=== PATIENT | female | born 1975 | race Caucasian/White ===

== ENCOUNTER 2016-12-22 18:16 | Emergency (ER) | payer BC ==
[2016-12-22 18:31] VITALS: BP 138/91
--- NOTE | 2016-12-22 19:13 | UC ---
Complaint Female HPI - HPI Summary HPI Summary: Pt presents with complaint of vaginal itching and burning. Pt states has a h/o yeast infection and states feels similar. Pt states used OTC monostat x 3 days and topical lotion with little improvement. Pt states feels like "on fire" and small bumps spreading towards buttock. No dysuria, hematuria. No odor. No bleeidng. Pt had ablation for metromenorrhagia in october 2016. Pt without concern for STDs. Pt states also with cold sore on left lip - pt has had before. Pt states increased stress, chronic abd pain - pt scheduled to have colonoscopy this week. Pt states has been on methotrexate x 4 weeks for ?RA by her rhuematologist. Pt states since taking it her bodya is " not right." No DM medications reviewed at this visit - History Of Current Complaint Chief Complaint: UCGU Stated Complaint: PERSONAL Time Seen by Provider: 12/22/16 18:45 Hx Obtained From: Patient Hx Last Menstrual Period: ABLATION ?: No Onset/Duration: Gradual Onset, Lasting Days Timing: Constant Severity Initially: Moderate Severity Currently: Moderate Character: Burning Associated Signs And Symptoms: Positive: Vaginal Discharge, Genital Swelling - Allergies/Home Medications Allergies/Adverse Reactions: Allergies Allergy/AdvReac Type Severity Reaction Status Date / Time Penicillins Allergy Rash Verified 12/22/16 18:31 Sulfamethoxazole Allergy Rash Verified 12/22/16 18:31 w/Trimethoprim [From Bactrim] Home Medications: Home Medications Miconazole Nitrate Vaginal [Monistat 3 Combination Pa 200-2 mg-% (9Gm)] 1 kit VA DAILY 12/22/16 [History Confirmed 12/22/16] PMH/Surg Hx/FS Hx/Imm Hx Previously Healthy: Yes Endocrine History: Diabetes - Surgical History Surgical History: Yes Surgery Procedure, Year, and Place: c sections x5, appy. ABLATION--11/02/16. CHOLECYSTECTOMY - Family History Known Family History: Positive: None - Social History Lives: With Family Alcohol Use: Occasionally Substance Use Type: None Smoking Status (MU): Never Smoked Tobacco - Immunization History Most Recent Influenza Vaccination: has not had Review of Systems Constitutional: Negative Skin: Rash - vaginal rash, itching left lip blister Eyes: Negative ENT: Negative Respiratory: Negative Cardiovascular: Negative Gastrointestinal: Negative Genitourinary: Negative Motor: Negative Neurovascular: Negative Musculoskeletal: Negative Neurological: Negative Psychological: Negative All Other Systems Reviewed And Are Negative: Yes Physical Exam Triage Information Reviewed: Yes Appearance: Well-Appearing, No Pain Distress, Well-Nourished Vital Signs: Initial Vital Signs Temp 98.3 F 12/22/16 18:24 Pulse 102 12/22/16 18:24 Resp 18 12/22/16 18:24 BP 138/91 12/22/16 18:24 Pulse Ox 99 12/22/16 18:24 Vital Signs Reviewed: Yes Eye Exam: Normal Eyes: Positive: Conjunctiva Clear ENT: Positive: Normal ENT inspection, Hearing grossly normal, Pharynx normal, Other: - left lower lip pt with herpectic appearing vesicle Neck exam: Normal Neck: Positive: Supple, Nontender, No Lymphadenopathy Respiratory Exam: Normal Respiratory: Positive: Chest non-tender, Lungs clear, Normal breath sounds, No respiratory distress, No accessory muscle use Cardiovascular Exam: Normal Cardiovascular: Positive: No Murmur, Pulses Normal Abdominal Exam: Normal Abdomen Description: Positive: No Organomegaly, Soft, Bruit, Other: - Pt with mild diffuse inflammation and erythema of vulva Pt with thick ,white discharge in vaginal vaula no lesions os closed No CMT vaginitis swab taken. Negative: Nontender - mild episgatric RUQ pain - baseline per pt Bowel Sounds: Positive: Present Musculoskeletal Exam: Normal Musculoskeletal: Positive: Strength Intact Neurological Exam: Normal Neurological: Positive: Alert Psychological Exam: Normal Psychological: Positive: Normal Response To Family Skin Exam: Normal Skin: Positive: rashes Complaint Female Dx - Course Course Of Treatment: Pt with vaginal burning and itching despite otc monistat. Pt with vaginitis on exam with white d/c - c/w yeast. diflcuan RX. culture. flat examiner f/u. cool packs - Differential Dx/Diagnosis Provider Diagnoses: herpes labialis left lip. vagnitis Discharge - Discharge Plan Condition: Stable Disposition: HOME Prescriptions: Fluconazole [Diflucan 150 MG (NF)] 150 mg PO ONCE #1 tab Patient Education Materials: Vulvovaginal Candidiasis (ED) Referrals: No Primary Care Phys,NOPCP [Medical Doctor] - Additional Instructions: - Take fluconazole today to help with your yeast infection. It is recommended you take a second dose in 5 days for ongoing symptoms - eat yogurt every day - it is recommended you use vasoline as a barrier ointment for discomfort - contact your flat examiner doctor to schedule a follow-up appointment. Contact your flat examiner or return with questions or concerns
== END 2016-12-22 19:23 | disposition home or self-care (01) ==
LOC: UCCORT 18:16
DX: N76.0 Acute vaginitis (principal); B00.1 Herpesviral vesicular dermatitis; E11.9 Type 2 diabetes mellitus without complications; Z88.0 Allergy status to penicillin; Z88.2 Allergy status to sulfonamides
CPT/HCPCS: 81003; 87480; 87510; 87660; 99211; G0463

== ENCOUNTER 2017-01-17 12:15 | Emergency (ER) | payer BC ==
[2017-01-17 12:27] VITALS: BP 129/88
--- NOTE | 2017-01-17 13:01 | RAD ---
HISTORY: Nocturnal trauma, rectal pain COMPARISONS: None VIEWS: 3, Frontal, lateral, and oblique views of the right foot FINDINGS: BONE DENSITY: Normal. BONES: There is no displaced fracture. There are calcaneal enthesophytes. JOINTS: There is no arthropathy. ALIGNMENT: There is no dislocation. SOFT TISSUES: Unremarkable. OTHER FINDINGS: None. IMPRESSION: NO ACUTE OSSEOUS INJURY. IF SYMPTOMS PERSIST, RECOMMEND REPEAT IMAGING.
--- NOTE | 2017-01-17 14:03 | UC ---
Lower Extremity/Ankle HPI - HPI Summary HPI Summary: WOKE UP WITH PAIN TO 1ST AND 2ND TOES OF RIGHT FOOT. NO BRUISING. NO HISTORY OF GOUT. NO REDNESS. NO KNOWN TRAUMA, BUT DOES OFTEN THRASH AND KICK WALL WHILE ASLEEP - History of Current Complaint Chief Complaint: UCLowerExtremity Stated Complaint: RIGHT BIG TOE/2ND TOE COMPLAINT Time Seen by Provider: 01/17/17 12:22 Hx Obtained From: Patient, Family/Neon Technician Hx Last Menstrual Period: unknown, ablation 12/04 Onset/Duration: Sudden Onset, Lasting Hours, Still Present Severity Initially: Mild Severity Currently: Mild Pain Intensity: 5 Pain Scale Used: 0-10 Numeric Aggravating Factor(s): Standing, Ambulation Alleviating Factor(s): Ice Able to Bear Weight: Yes - Risk Factors Gout Risk Factors: Negative DVT Risk Factors: Negative Septic Arthritis Risk Factor: Negative - Allergies/Home Medications Allergies/Adverse Reactions: Allergies Allergy/AdvReac Type Severity Reaction Status Date / Time Penicillins Allergy Rash Verified 01/17/17 12:27 Sulfamethoxazole Allergy Rash Verified 01/17/17 12:27 w/Trimethoprim [From Bactrim] PMH/Surg Hx/FS Hx/Imm Hx Previously Healthy: Yes - Surgical History Surgical History: Yes Surgery Procedure, Year, and Place: c sections x5, appy. ABLATION--11/02/16. CHOLECYSTECTOMY - Family History Known Family History: Positive: None - Social History Occupation: Employed Full-time Lives: With Family Alcohol Use: Occasionally Substance Use Type: None Smoking Status (MU): Never Smoked Tobacco - Immunization History Most Recent Influenza Vaccination: has not had Review of Systems Constitutional: Negative Skin: Negative Eyes: Negative ENT: Negative Respiratory: Negative Cardiovascular: Negative Gastrointestinal: Negative Genitourinary: Negative Motor: Negative Neurovascular: Negative Musculoskeletal: Arthralgia - RIGHT 1ST, 2ND TOES, Myalgia Neurological: Negative Psychological: Negative All Other Systems Reviewed And Are Negative: Yes Physical Exam Triage Information Reviewed: Yes Appearance: Well-Appearing, No Pain Distress, Well-Nourished Vital Signs: Initial Vital Signs Temp 98.6 F 01/17/17 12:23 Pulse 86 01/17/17 12:23 Resp 16 01/17/17 12:23 BP 129/88 01/17/17 12:23 Pulse Ox 100 08/30/17 12:23 Vital Signs Reviewed: Yes Eye Exam: Normal ENT Exam: Normal ENT: Positive: Normal ENT inspection Dental Exam: Normal Neck exam: Normal Neck: Positive: Supple, Nontender Respiratory Exam: Normal Respiratory: Positive: Chest non-tender, Lungs clear, Normal breath sounds, No respiratory distress Cardiovascular Exam: Normal Cardiovascular: Positive: RRR, No Murmur Abdominal Exam: Normal Musculoskeletal Exam: Other - TENDER TO RIGHT 1ST 2ND TOES AND DISTAL METATARSALS Musculoskeletal: Positive: Strength Intact, ROM Intact, No Edema Lower Extremity Course/Dx - Differential Dx/Diagnosis Differential Diagnosis/HQI/PQRI: Fracture (Closed), Sprain, Strain Provider Diagnoses: RIGHT FOOT SPRAIN/CONTUSION Discharge - Discharge Plan Condition: Stable Disposition: HOME Patient Education Materials: Foot Contusion (ED), Foot Sprain (ED) Referrals: [facility] [Outside] - If Needed ESME Hopkins [Primary Care Provider] -
== END 2017-01-17 13:18 | disposition home or self-care (01) ==
LOC: UCCORT 12:15
DX: S90.31XA Contusion of right foot, initial encounter (principal)
CPT/HCPCS: 99213; G0463

== ENCOUNTER 2017-09-24 11:39 | Emergency (ER) | payer BC ==
--- OUTSIDE RECORDS SUMMARY | 2017-09-24 11:58 | XMS REPORT ---
:1975 External Reference #:[id number] Author Organization [facility] Address [address] [place] [address] Phone [phone] Care Team Providers Name Role Phone Ivan Tran PA Primary Care Physician Unavailable Payers Type Date Identification Numbers Payment Provider Subscriber Commercial Policy Number: [id number] [employer] Remi Tolentino PayID: [id number] [address] [address] [place] [address] Workers Compensation Onset: 2010 Policy Number: Lan Tolentino [id number] [facility] PayID: [id number] [address] [place] [address] Problems Description No Information Family History Date Family Member(s) Problem(s) Comments General Arthritis General Arthritis, Osteo Father Gout Mother Arthritis Mother Her mother required joint surgery and in an MVA Social History Type Date Description Comments ETOH Use Drinks 6 Alcoholic Beverages Per Week ETOH Use consumes 1 six pack per week Smoking Patient has never smoked Exercise Type/Frequency Exercises rarely Allergies, Adverse Reactions, Alerts Date Description Reaction Status Severity Comments 12/22/2010 Penicillin active 07/04/2017 Sulfamethoxazole active 07/04/2017 Hydroxychloroquine active 07/04/2017 Enbrel active Medications Medication Date Status Form Strength Qnty SIG Indications Ordering Provider Methotrexate Active Tablets 2.5mg 60tabs take 6 M35.9 Cristian 018 capsules Francisco, /tablets M.D. by mouth once weekly Folic Acid Active Tablets 1mg 90tabs take one M35.9 Cristian 018 capsule/ Francisco, tablet M.D. daily by mouth D3 Maximum Active Capsules 5000Unit 90caps take one Cristian Strength 018 capsule/ Francisco, tablet M.D. daily by mouth Tramadol HCL Active Tablets 50mg 90tabs take one Cristian 018 capsule/ Francisco, tablet M.D. by mouth every 8 hours as needed for pain Buspirone HCL 0 Active Tablets 7.5mg Unknown 000 Metformin HCL 0 Hx Tablets ER 500mg Unknown ER (Osm) 000 - 24HR 018 Gabapentin 0 Hx Tablets 600mg Unknown 000 - 018 Pantoprazole [address] 40mg Unknown Sodium 000 - 018 Ortho Hx Tablets 0.18/0.215 1 by Unknown Tri-Cyclen Lo 000 - /0.25 mouth mg-25 mcg every 018 day Cymbalta [address] 60mg 1 by Unknown 000 - Part mouth every 018 day Vital Signs Date Vital Result Comment 09/11/2017 Height 62 inches 5'2" Weight 173.00 lb Heart Rate 80 /min BP Systolic Sitting 126 mmHg BP Diastolic Sitting 86 mmHg Respiratory Rate 14 /min Pain Level 5 BMI (Body Mass Index) 31.6 kg/m2 07/30/2017 Height 62 inches 5'2" Weight 177.38 lb Heart Rate 82 /min BP Systolic Sitting 132 mmHg BP Diastolic Sitting 88 mmHg Respiratory Rate 14 /min Pain Level 6 BMI (Body Mass Index) 32.4 kg/m2 07/04/2017 Height 62 inches 5'2" Weight 175.38 lb Heart Rate 84 /min BP Systolic Sitting 142 mmHg BP Diastolic Sitting 84 mmHg Respiratory Rate 14 /min Pain Level 8 BMI (Body Mass Index) 32.1 kg/m2 Results Test Date Test Result H/L Range Note Laboratory test finding 08/29/2017 Erythrocyte Sed Rate 25 mm/Hr High 0- 14 C Reactive Protein 19.58 mg/L High < 5.00 1 CBC Auto Diff 08/29/2017 White Blood Count 8.3 10^3/uL 3.5-10.8 Red Blood Count 4.49 10^6/uL 4.0-5.4 Hemoglobin 13.3 g/dL 12.0-16.0 Hematocrit 38 % 35-47 Mean Corpuscular Volume 85 fL 80-97 Mean Corpuscular Hemoglobin 30 pg 27-31 Mean Corpuscular HGB Conc 35 g/dL 31-36 Red Cell Distribution Width 13 % 10.5-15 Platelet Count 298 10^3/uL 150-450 Mean Platelet Volume 7.8 um3 7.4-10.4 Abs Neutrophils 5.6 10^3/uL 1.5-7.7 Abs Lymphocytes 1.9 10^3/uL 1.0-4.8 Abs Monocytes 0.6 10^3/uL 0-0.8 Abs Eosinophils 0.1 10^3/uL 0-0.6 Abs Basophils 0.1 10^3/uL 0-0.2 Abs Nucleated RBC 0 10^3/uL Granulocyte % 67.6 % 38-83 Lymphocyte % 22.7 % Low 25-47 Monocyte % 7.1 % High 0-7 Eosinophil % 1.7 % 0-6 Basophil % 0.9 % 0-2 Nucleated Red Blood Cells % 0 Comp Metabolic Panel 08/29/2017 Sodium 135 mmol/L Low 139-145 Potassium 4.6 mmol/L 3.5-5.0 Chloride 97 mmol/L Low 101-111 Co2 Carbon Dioxide 31 mmol/L 22-32 Anion Gap 7 mmol/L 2-11 Glucose 237 mg/dL High 70-100 Blood Urea Nitrogen 13 mg/dL 6-24 Creatinine 0.78 mg/dL 0.51-0.95 BUN/Creatinine Ratio 16.7 8-20 Calcium 9.9 mg/dL 8.6-10.3 Total Protein 7.2 g/dL 6.4-8.9 Albumin 4.5 g/dL 3.2-5.2 Globulin 2.7 g/dL 2-4 Albumin/Globulin Ratio 1.7 1-3 Total Bilirubin 0.30 mg/dL 0.2-1.0 Alkaline Phosphatase 98 U/L 34-104 Alt 30 U/L 7-52 Ast 24 U/L 13-39 Egfr Non- 80.6 >60 Egfr 103.7 >60 2 Laboratory test finding 07/04/2017 Thyroperoxidase AB 0.31 IU/mL <9 Laboratory test finding 07/04/2017 Ferritin 123.9 ng/mL 11-307 Erythrocyte Sed Rate 28 mm/Hr High 0-14 C Reactive Protein 17.76 mg/L High < 5.00 3 Vitamin D 1,25 And Vitamin 07/04/2017 Vitamin D Total 25(Oh) 17.6 ng/mL Low 20-50 D,2 Vitamin B12 And Folate 07/04/2017 Vitamin B12 448 pg/mL 180-914 4 Serum Folic Acid (Folate) 18.74 ng/mL >3.99 Laboratory test finding 07/04/2017 Creatine Kinase(CK) 47 U/L 10-223 Alpha 1 Antitrypsin Phenotypin 07/04/2017 A1a Phenotype MM bands 5 Alpha 1 Antitrypsin A1a 118 mg/dL 100 - 190 6 Laboratory test finding 07/04/2017 Vitamin D, 1,25 Dihydroxy 66 pg/mL 18- 78 7 Cardiolipin Igg/Igm 07/04/2017 Phospholipid Ab IgM, S 10.7 MPL 8 Phospholipid Ab IgG < 9.4 GPL 9 Hla-B 5701 Genotype 07/04/2017 Hla-B 5701 Result Negative Negative Hla-B 5701 Interpretation See Comment 10 Hla-B 5701 Reviewed By See Comment 11 Laboratory test finding 07/04/2017 Anti Double Stranded Dna AB <12.3 IU/ mL 12 Nuclear AB (Diane) By Ifa Igg <1:80 (Negative) 13 Hla B27 07/04/2017 Hla B27 Negative 14 Hla B27 Interp See Comment 15 Laboratory test finding 07/04/2017 Cyclic Citrullinated <15.6 U 16 Pep Igg Immunoglobulins Serum 07/04/2017 Immunoglobulin G 1060 mg/dL 767 - 1590 17 Quant Immunoglobulin M 221 mg/dL 37 - 286 Immunoglobulin A 151 mg/dL 61 - 356 Laboratory test finding 07/04/2017 Complement C3 186 mg/dL 75 - 175 18 Complement C4 39 mg/dL 14 - 40 19 Aliza Igg AB Reflex 07/04/2017 SS-A/Ro Antibody <0.2 U 20 SS-B/La Antibody <0.2 U 21 Sm (Strange) IgG Antibody <0.2 U 22 U1-nRNP Antibody <0.2 U 23 Scl-70 (Scleroderma) Antibody <0.2 U 24 Mayte-1 Antibody <0.2 U 25 Laboratory test finding 07/04/2017 Rheumatoid Factor <15 IU/mL <15 26 Aldolase 8.7 U/L <7.7 27 1 Acute inflammation: >10.00 2 Because ethnic data is not always readily available, this report includes an eGFR for both -Americans and non- Americans. The National Kidney Disease Education Program (NKDEP) does not endorse the use of the MDRD equation for patients that are not between the ages of 18 and 70, are , have extremes of body size, muscle mass, or nutritional status, or are non- or non-. According to the National Kidney Foundation, irrespective of diagnosis, the stage of the disease is based on the level of kidney function: Stage Description GFR(mL/min/1.73 m(2)) 1 Kidney damage with normal or decreased GFR 90 2 Kidney damage with mild decrease in GFR 60-89 3 Moderate decrease in GFR 30-59 4 Severe decrease in GFR 15-29 5 Kidney failure <15 (or dialysis) 3 Acute inflammation: >10.00 4 Normal Range 180 to 914 Indeterminate Range 145 to 180 Deficient Range <145 5 Reviewed by: Sebastian Kent 07/23/2017 2:24 PM 6 Test Performed by: [facility] - [address] [address] 7 ADDITIONAL INFORMATION This test was developed and its performance characteristics determined by [facility] in a manner consistent with CLIA requirements. This test has not been cleared or approved by the U.S. Food and Drug Administration. Test Performed by: [facility] - [facility] [address] [place] [address] 8 REFERENCE VALUE <15.0 (Negative) 9 REFERENCE VALUE <15.0 (Negative) Test Performed by: [facility] - [address] [address] 10 This patient was not found to have the HLA-B*5701 allele. This patient is at no greater risk than the general population for the development of abacavir hypersensitivity reaction (HSR). Though the likelihood of abacavir HSR is lower in this patient than in someone with the HLA-B*5701 allele, a negative result does not preclude the development of an allergic response to abacavir and cannot substitute for clinical vigilance whenever abacavir therapy is administered. Should abacavir HSR develop, therapy should be discontinued immediately and permanently. ADDITIONAL INFORMATION The HLA-B*57:01 allele is detected by allele specific amplification (IMGT/HLA accession number [id number]). Screening for the HLA-B*57:01 allele is recommended by the FDA before initiating therapy with abacavir. Genotyping is also critical when there is a clinical history of, or when the physician suspects, an abacavir hypersensitivity reaction. However, FDA guidance states that, regardless of HLA-B*57:01 status, abacavir should be permanently discontinued if hypersensitivity cannot be ruled out, even when other diagnoses are possible. Since symptoms of abacavir hypersensitivity are often variable and non-specific and can imitate other conditions commonly seen in HIV patients on antiretroviral therapy, the phenotypic diagnosis of abacavir hypersensitivity can be challenging. For additional information regarding pharmacogenomic genes and their associated drugs, please see the Pharmacogenomic Associations Tables on the [employer] webpage, [email or web address]. This resource also includes information regarding enzyme inhibitors and inducers, as well as potential alternate drug choices. Please note that the information at this link is educational material intended for health nursing care attendant and may not be comprehensive. This educational material is not intended to supersede the care provider's experience and knowledge of her/his patient to establish a diagnosis or a treatment plan. All medications require careful clinical monitoring. Please contact the laboratory at for further information about pharmacogenomic testing. CAUTIONS: Rare or novel variants may be present that could lead to false negative or false positive results. There may be rare or novel HLA-B alleles which could interfere with this assay. There are currently no data indicating whether any other alleles or subtypes are associated with abacavir hypersensitivity. If results obtained do not match the clinical findings (phenotype), additional testing should be considered. Samples may contain donor DNA if obtained from patients who received heterologous blood transfusions or allogeneic blood or marrow transplantation. Results from samples obtained under these circumstances may not accurately reflect the recipient's genotype. For individuals who have received blood transfusions, the genotype usually reverts to that of the recipient within 6 weeks. The impact of blood or marrow transplantation on risk of abacavir hypersensitivity reactions is not defined in the literature. This test was developed and its performance characteristics determined by [facility] in a manner consistent with CLIA requirements. This test has not been cleared or approved by the U.S. Food and Drug Administration. 11 RESULT: Janet Orlando, Ph.D. Test Performed by: [address] [address] 12 REFERENCE VALUE <30.0 (Negative) Test Performed by: [address] [address] 13 <1:80 (Negative) REFERENCE VALUE <1:80 (Negative) Test Performed by: [address] [address] 14 REFERENCE VALUE Not Applicable 15 RESULT: HLA-B27 antigen was not detected. ADDITIONAL INFORMATION Method: Flow Cytometry Performing Laboratory CLIA# [id number] Test Performed by: [place] [id number] REFERENCE VALUE <20.0 (Negative) Test Performed by: [facility] - [facility] [address] [place] [address] 17 Test Performed by: [facility] - [facility] [address] [place] [address] 18 Test Performed by: [facility] - [facility] [address] [facility], [place] [address] 19 Test Performed by: [facility] - [facility] [address] [facility], [place] [address] 20 REFERENCE VALUE <1.0 (Negative) 21 REFERENCE VALUE <1.0 (Negative) 22 REFERENCE VALUE <1.0 (Negative) 23 REFERENCE VALUE <1.0 (Negative) 24 REFERENCE VALUE <1.0 (Negative) 25 REFERENCE VALUE <1.0 (Negative) Test Performed by: [facility] [address] [place] [address] 26 Test Performed by: [facility] [address] [place] [address] 27 Test Performed by: [facility] [address] [place] [address] Procedures Description No Information Encounters Type Date Location Provider CPT E/M Dx Office Visit 07/30/2017 [facility] Cristian Singh M.D. 71280 M35.9 4:20p [facility] M54.5 Z79.899 E06.9 E55.9 Office Visit 07/04/2017 9:00a [facility] Cristian Singh [address]59 R76.0 [place] Jiang M79.1 R20.8 R06.83 M25.519 M54.5 M54.2 M54.6 Office Visit 02/02/2011 9:30a [facility] [address] 842.11 [place] Jiang Office Visit 12/22/2010 9:15a [facility] [address] 842.11 [place] Jiang 842.12 842.11 Plan of Care Future Appointment(s):12/12/2017 3:00 pm - Cristian Singh M.D. at [facility]09/11/2017 - Cristian Singh M.D.M35.9 Systemic involvement of connective tissue, unspecifiedFollow up:Follow up in 2 or 3 months or sooner if cadussM50.5 Low back painZ79.899 Other [facility] (current) drug qdmnordH12.9 Thyroiditis, unspecified
--- OUTSIDE RECORDS SUMMARY | 2017-09-24 11:58 | XMS REPORT ---
:1975 External Reference #:[id number] Author Organization [facility] Address [address] [place] [address] Phone [phone] Care Team Providers Name Role Phone Cristian Singh M.D. Care Team Information [employer] C[employer] Unavailable Payers Type Date Identification Numbers Payment Provider Subscriber Commercial Policy Number: [id number] [facility] Remi Tolentino PayID: [id number] [address] [address] [place] [address] Problems Description No Information Social History Type Date Description Comments Cigarette Use Never Smoked Cigarettes Cigars Never Smoked Cigars Pipe Never Smoked A Pipe Smokeless Tobacco Never Used Smokeless Tobacco ETOH Use Currently occasionally consumes alcohol Smoking Patient has never smoked Allergies, Adverse Reactions, Alerts Date Description Reaction Status Severity Comments 09/10/2017 Penicillin active Medications Medication Date Status Form Strength Qnty SIG Indications Ordering Provider Tramadol HCL Active Tablets 50mg 1 tab 3 Unknown 00 times a day Vitamin D-3 Active Tablets 5000Unit 1 by Unknown 00 mouth every day Folic Acid Active Tablets 1mg every Unknown 00 day Duloxetine HCL Active Caps DR 60mg 1 tab Unknown 00 Part daily Methotrexate Active Tablets 2.5mg 1 tabs Karn, 00 every Ivan week P.A. Vital Signs Date Vital Result Comment 09/10/2017 Weight 172.00 lb Weight in kg's 78.019 Height 62 inches 5'2" Height in cm's 157.5 cm BMI (Body Mass Index) 31.5 kg/m2 Results Test Date Test Result H/L Range Note Laboratory test finding 09/10/2017 Surgical Pathology <pending> Procedures Description No Information Plan of Care 09/10/2017 - Cristian Duffy M.D.M35.00 Sicca syndrome, unspecifiedComments:I performed a minor salivary gland biopsy because of concerns for Sjogren's disease. No hot or spicy food. the sutures will dissolve or break.E04.2 Nontoxic multinodular goiterComments:I looked at the patient's thyroid US. She has a 0.3 and 0.5 low suspicious nodules. These do not need further evaluation.
[2017-09-24 12:13] VITALS: BP 118/74
--- NOTE | 2017-09-24 13:09 | UC ---
Abdominal Pain Female HPI - HPI Summary HPI Summary: Pt c/o sudden onset of generalized abdominal pain that began on 09/20/17 and has worsened since onset. Pt states that she was seen at [facility] on 09/21/17 and had "CT scan, blood work, and urine taken" and "all tests were negative". Pt presents today with worsening superumbilical pain that rdiates to RUQ and to right flank. Pt denies fever, c/o diaphoresis, chills, nausea with "waves of pain", loose stools per normal BM pattern, pt reports hx of appendecotmy, and cholecystectomy, denies any known GI disorders of IBS, crohn's , diverticulosis or diverticulitis. - History of Current Complaint Chief Complaint: UCAbdominalPain Stated Complaint: RIGHT SIDE PAIN Time Seen by Provider: 09/24/17 12:41 Hx Obtained From: Patient Hx Last Menstrual Period: over 1 yr ?: No Onset/Duration: Sudden Onset, Lasting Days, Still Present, Worse Since - onset Timing: Constant Severity Initially: Mild Severity Currently: Moderate Pain Intensity: 9 Location: Diffuse, Discrete At: RUQ, Epigastric Radiates: Yes Radiates to: Back, Flank Character: Colicy, Dull Aggravating Factor(s): Movement Alleviating Factor(s): Nothing Associated Signs and Symptoms: Positive: Diaphoresis, Decreased Appetite, Nausea - Risk Factors Ectopic Risk Factor: Negative Allergies/Adverse Reactions: Allergies Allergy/AdvReac Type Severity Reaction Status Date / Time Penicillins Allergy Rash Verified 09/24/17 12:14 sulfamethoxazole Allergy Rash Verified 09/24/17 12:14 [From Bactrim] trimethoprim [From Bactrim] Allergy Rash Verified 09/24/17 12:14 Home Medications: Home Medications Antidepressant 1 tab PO QPM 09/24/17 [History Confirmed 09/24/17] Etanercept [Enbrel] 25 mg SC WEEKLY 09/24/17 [History Confirmed 09/24/17] Folic Acid TAB* [Folvite TAB*] 1 mg PO DAILY 09/24/17 [History Confirmed ] Methotrexate TAB* 2.5 mg PO Q7D 09/24/17 [History Confirmed 09/24/17] metFORMIN* [Glucophage 500 MG TAB *] 500 mg PO QPM 09/24/17 [History Confirmed 09/24/17] PMH/Surg Hx/FS Hx/Imm Hx Previously Healthy: Yes Endocrine History: Diabetes - Surgical History Surgical History: Yes Surgery Procedure, Year, and Place: c sections x ; appy 2004. Uterine ABLATION --11/02/16. CHOLECYSTECTOMY - Family History Known Family History: Positive: Cardiac Disease - Social History Occupation: Employed Full-time Lives: With Family Alcohol Use: Occasionally Substance Use Type: None Smoking Status (MU): Never Smoked Tobacco Have You Smoked in the Last Year: No - Immunization History Most Recent Influenza Vaccination: has not had Review of Systems Constitutional: Chills, Fatigue Skin: Negative Eyes: Negative ENT: Negative Respiratory: Negative Cardiovascular: Negative Gastrointestinal: Abdominal Pain, Nausea Genitourinary: Negative Motor: Negative Neurovascular: Negative Musculoskeletal: Negative Neurological: Negative Psychological: Negative Is Patient Immunocompromised?: No All Other Systems Reviewed And Are Negative: Yes Physical Exam Triage Information Reviewed: Yes Appearance: Pain Distress Vital Signs: Initial Vital Signs Temp 97.8 F 09/24/17 12:00 Pulse 95 09/24/17 12:00 Resp 20 09/24/17 12:00 BP 118/74 09/24/17 12:00 Pulse Ox 97 09/24/17 12:00 Vital Signs Reviewed: Yes Eye Exam: Normal ENT: Positive: Hearing grossly normal Neck exam: Normal Respiratory Exam: Normal Cardiovascular Exam: Normal Abdomen Description: Positive: No Organomegaly, Soft, CVA Tenderness (R), Other : - generalized tenderness, Bowel Sounds: Positive: Present Musculoskeletal Exam: Normal Neurological Exam: Normal Psychological Exam: Normal Skin Exam: Normal Abd Pain Female Course/Dx - Differential Dx/Diagnosis Differential Diagnosis: Bowel Obstruction, Diverticulitis, Irritable Bowel Syndrome, Pancreatitis Provider Diagnoses: Abdominal pain - Physician Notification/Consults Discussed Care of Patient With: Milagros Pinzon - accepted at [facility] Time Discussed With Above Provider: 13:22 Discharge - Sign-Out/Discharge Documenting (check all that apply): Discharge/Admit/Transfer - Discharge Plan Condition: Stable Disposition: HOME Patient Education Materials: Acute Abdominal Pain (ED) Referrals: [facility] [Primary Care Provider] - As Soon As Possible Additional Instructions: It is our recommendation that you go directly to the closest Emergency Department for further evaluation and testing. Your exam here today did not reveal the cause of your presenting complaint of abdominal pain. You indicate that you feel comfortable to drive yourself however, we must note that alternative transportation was offered and you declined. - Billing Disposition and Condition Condition: STABLE Disposition: HOME
== END 2017-09-24 13:18 | disposition home or self-care (01) ==
LOC: UCCORT 11:39
DX: R10.84 Generalized abdominal pain (principal); Z88.1 Allergy status to other antibiotic agents; Z88.0 Allergy status to penicillin; Z88.2 Allergy status to sulfonamides; E11.9 Type 2 diabetes mellitus without complications; Z79.84 Long term (current) use of oral hypoglycemic drugs
CPT/HCPCS: 81003; 99212; G0463

== ENCOUNTER 2018-02-09 10:01 | Emergency (ER) | payer BC ==
[2018-02-09 11:00] VITALS: BP 143/91
--- NOTE | 2018-02-09 11:07 | UC ---
Dental HPI - HPI Summary HPI Summary: Pt states broke lower left tooth 5 days ago. pt with 3 days progressive pain, 2 days facial swelling. no fever, chills + temp sensitivity pt with appt with dentist next sun. Pt is immunocompromised on methotrexate for RA no fever, chills no intra-oral edema Pt has analgesia prescribed - has also used Motrin without relief Pt's medications reviewed - History of Current Complaint Chief Complaint: UCDentalProblem Stated Complaint: DENTAL Hx Obtained From: Patient Hx Last Menstrual Period: over 1 yr Onset/Duration: Gradual Onset, Lasting Days Pain Intensity: 10 - Allergies/Home Medications Allergies/Adverse Reactions: Allergies Allergy/AdvReac Type Severity Reaction Status Date / Time Penicillins Allergy Rash Verified 02/09/18 10:51 sulfamethoxazole Allergy Rash Verified 02/09/18 10:51 [From Bactrim] trimethoprim [From Bactrim] Allergy Rash Verified 02/09/18 10:51 Home Medications: Home Medications Abatacept* [Orencia*] 250 mg IV SEE INSTRUCTIONS 02/09/18 [History Confirmed ] Ibuprofen TAB* [Advil TAB*] 600 mg PO Q6H PRN 02/09/18 [History Confirmed ] PMH/Surg Hx/FS Hx/Imm Hx Previously Healthy: No - RA - Surgical History Surgical History: Yes Surgery Procedure, Year, and Place: c sections x ; appy 2004. Uterine ABLATION --11/02/16. CHOLECYSTECTOMY - Family History Known Family History: Positive: Cardiac Disease - Social History Occupation: Disabled Lives: With Family Alcohol Use: Occasionally Substance Use Type: None Smoking Status (MU): Never Smoked Tobacco Have You Smoked in the Last Year: No - Immunization History Most Recent Influenza Vaccination: has not had Review of Systems Constitutional: Negative ENT: Dental Pain Is Patient Immunocompromised?: Yes All Other Systems Reviewed And Are Negative: Yes Physical Exam - Summary Physical Exam Summary: Vital Signs Reviewed: Yes A+Ox3, no distress Eyes: Conjunctiva Clear, GENESIS, eOM intact and full ENT: Hearing grossly normal, TM x 2 clear, mmmoist no exduate #18 tooth broken , + TTP gumline buccal side, no edema, no fluctuance, no bleeding mild left facial edema neck: supple Respiratory: Positive: No respiratory distress, No accessory muscle use Cardiovascular: skin color reflect adequate perfusion Musculoskeletal Exam: JACOBO x 4 without difficulty Neurological: Positive: Alert, ambulatory without difficulty Psychological: Positive: Normal Response To Family Skin: Positive: no rash, no ecchymosis Triage Information Reviewed: Yes Vital Signs: Initial Vital Signs Temp 97.8 F 02/09/18 10:54 Pulse 88 02/09/18 10:54 Resp 18 02/09/18 10:54 BP 143/91 02/09/18 10:54 Pulse Ox 100 02/09/18 10:54 Dental Complaint Course/Dx - Course Course Of Treatment: Pt with left lower dental pain after breaking tooth 1 week ago Pt with noted tenderness and fullness #18. Clinda. swish and spit. motrin /apap. probiotics. topical Ambusol. dental f/u as scheduled - Differential Dx/Diagnosis Provider Diagnoses: dental abscess Discharge - Sign-Out/Discharge Documenting (check all that apply): Patient Departure All imaging exams completed and their final reports reviewed: No Studies - Discharge Plan Condition: Stable Disposition: HOME Prescriptions: Clindamycin Cap(NF) [Clindamycin Cap 300 mg Cap(NF)] 300 mg PO TID #30 cap Patient Education Materials: Dental Abscess (ED) Referrals: Adelaide Espinal NP [Primary Care Provider] - Additional Instructions: - Take antibiotics as prescribed until gone - take your pain medication as previously prescribed - Okay to apply heat or cold to your cheek - swish and spit with warm salt water - take probiotics or eat yogurt to help with diarrhea related to antibiotics - keep your appointment as scheduled on Sunday with your primary doctor - Billing Disposition and Condition Condition: STABLE Disposition: Home
== END 2018-02-09 11:23 | disposition home or self-care (01) ==
LOC: UCCORT 10:01
DX: K04.7 Periapical abscess without sinus (principal); Z88.0 Allergy status to penicillin; Z88.2 Allergy status to sulfonamides
CPT/HCPCS: 99212; G0463

== ENCOUNTER 2019-01-29 16:35 | Emergency (ER) | payer BC ==
[2019-01-29 16:53] VITALS: BP 124/82
--- NOTE | 2019-01-29 17:01 | UC ---
UC General HPI - HPI Summary HPI Summary: pt is c/o a vaginal yeast infection. describes as itching x 1 week. no discharge. hx same. no risk/concern for std. attributes to her DM. BS avg 190's during day. she has a f/u appt for that. - History of Current Complaint Chief Complaint: UCGeneralIllness Stated Complaint: PERSONAL Time Seen by Provider: 01/29/19 16:55 Hx Obtained From: Patient Hx Last Menstrual Period: over 1 yr Onset/Duration: Gradual Onset Timing: Constant Pain Intensity: 0 Associated Signs & Symptoms: Negative: Abdominal Pain, Dysuria, Fever - Allergy/Home Medications Allergies/Adverse Reactions: Allergies Allergy/AdvReac Type Severity Reaction Status Date / Time Penicillins Allergy Rash Verified 01/29/19 16:53 sulfamethoxazole Allergy Rash Verified 01/29/19 16:53 [From Bactrim] trimethoprim [From Bactrim] Allergy Rash Verified 01/29/19 16:53 Home Medications: Home Medications metFORMIN* [Glucophage 1000 MG TAB *] 1,000 mg PO BID 01/29/19 [History Confirmed 01/29/19] PMH/Surg Hx/FS Hx/Imm Hx Endocrine History: Diabetes - Surgical History Surgical History: Yes Surgery Procedure, Year, and Place: c sections x 5; appy 2004. Uterine ABLATION --11/02/16. CHOLECYSTECTOMY. hysterectomy - Family History Known Family History: Positive: None, Cardiac Disease - Social History Alcohol Use: Occasionally Substance Use Type: None Smoking Status (MU): Never Smoked Tobacco Have You Smoked in the Last Year: No - Immunization History Most Recent Influenza Vaccination: has not had Review of Systems All Other Systems Reviewed And Are Negative: Yes Constitutional: Negative: Fever, Chills Gastrointestinal: Negative: Abdominal Pain Genitourinary: Positive: Vaginal/Penile Itching. Negative: Dysuria Physical Exam Triage Information Reviewed: Yes Appearance: Well-Appearing Vital Signs: Initial Vital Signs Temp 98.3 F 01/29/19 16:49 Pulse 86 01/29/19 16:49 Resp 16 01/29/19 16:49 BP 124/82 01/29/19 16:49 Pulse Ox 99 01/29/19 16:49 Vital Signs Reviewed: Yes Eyes: Positive: Conjunctiva Clear Neck: Positive: Supple Respiratory: Positive: No respiratory distress Cardiovascular: Positive: RRR Abdomen Description: Positive: Nontender, No Organomegaly, Soft Bowel Sounds: Positive: Present Pelvic Exam: Positive: Other - pt declined Neurological: Positive: Alert Psychological: Positive: Age Appropriate Behavior Skin Exam: Normal Course/Dx - Differential Dx - Multi-Symptom Differential Diagnoses: Other - pt declined pelvic exam. will tx for presumptive yeast vaginitis. - Diagnoses Provider Diagnosis: Vaginitis Discharge ED - Sign-Out/Discharge Documenting (check all that apply): Patient Departure All imaging exams completed and their final reports reviewed: No Studies - Discharge Plan Condition: Stable Disposition: HOME Prescriptions: Fluconazole 150 MG TAB* [Diflucan 150 MG TAB*] 150 mg PO UC ONCE #1 tablet Patient Education Materials: Yeast Infection (ED) Referrals: Adelaide Espinal NP [Primary Care Provider] - Additional Instructions: follow up if not better in a few days or sooner if worse. - Billing Disposition and Condition Condition: STABLE Disposition: Home
== END 2019-01-29 17:14 | disposition home or self-care (01) ==
LOC: UCCORT 16:35
DX: N76.0 Acute vaginitis (principal); E11.9 Type 2 diabetes mellitus without complications; Z79.84 Long term (current) use of oral hypoglycemic drugs; Z88.0 Allergy status to penicillin; Z88.2 Allergy status to sulfonamides
CPT/HCPCS: 99212; G0463

== ENCOUNTER 2019-08-08 09:15 | Emergency (ER) | payer BC ==
[2019-08-08 10:56] VITALS: BP 108/80
--- NOTE | 2019-08-08 11:12 | UC ---
Throat Pain/Nasal Seven HPI - HPI Summary HPI Summary: Pt presents with c/o ST, bilateral ear ache, sinus pressure, X 3 days. - History of Current Complaint Stated Complaint: ST/EARPAIN/HEADACHE Hx Obtained From: Patient Hx Last Menstrual Period: over 1 yr ?: No Onset/Duration: Gradual Onset, Lasting Days, Still Present Severity: Moderate Pain Intensity: 6 Cough: None Associated Signs & Symptoms: Positive: Sinus Discomfort - Epiglottits Risk Factors Epiglottis Risk Factors: Negative - Allergies/Home Medications Allergies/Adverse Reactions: Allergies Allergy/AdvReac Type Severity Reaction Status Date / Time Penicillins Allergy Rash Verified 04/16/19 10:37 sulfamethoxazole Allergy Rash Verified 04/16/19 10:37 [From Bactrim] trimethoprim [From Bactrim] Allergy Rash Verified 04/16/19 10:37 Home Medications: Home Medications Cholecalciferol (Vitamin D3) [D 5000] 50,000 unit PO WEEKLY 12/14/17 [History Confirmed 08/08/19] Ibuprofen TAB* [Advil TAB*] 600 mg PO Q6H PRN 02/09/18 [History Confirmed ] metFORMIN* [Glucophage 1000 MG TAB *] 1,000 mg PO BID 01/29/19 [History Confirmed 08/08/19] Dulaglutide [Trulicity] 1.5 mg SUBCUT WEEKLY 04/01/19 [History Confirmed ] Acetaminophen [Tylenol Extra Strength] 1,000 mg PO ONCE 08/08/19 [History Confirmed 08/08/19] PMH/Surg Hx/FS Hx/Imm Hx Previously Healthy: Yes - Surgical History Surgical History: Yes Surgery Procedure, Year, and Place: c sections x 5; appy 2004. Uterine ABLATION --11/02/16. CHOLECYSTECTOMY. hysterectomy - Family History Known Family History: Positive: Cardiac Disease - Social History Occupation: Employed Full-time Lives: With Family Alcohol Use: None Substance Use Type: None Smoking Status (MU): Never Smoked Tobacco Have You Smoked in the Last Year: No - Immunization History Most Recent Influenza Vaccination: has not had Review of Systems All Other Systems Reviewed And Are Negative: Yes Constitutional: Positive: Negative Skin: Positive: Negative Eyes: Positive: Negative ENT: Positive: Ear Ache, Sinus Congestion Respiratory: Positive: Negative Cardiovascular: Positive: Negative Gastrointestinal: Positive: Negative Genitourinary: Positive: Negative Motor: Positive: Negative Neurovascular: Positive: Negative Musculoskeletal: Positive: Negative Neurological/Mental Status: Positive: Negative Psychological: Positive: Negative Is Patient Immunocompromised?: No Physical Exam - Summary Physical Exam Summary: COVID precautions taken for PE Triage Information Reviewed: Yes Vital Signs: Initial Vital Signs Temp 98.1 F 08/08/19 10:48 Pulse 96 08/08/19 10:48 Resp 17 08/08/19 10:48 BP 108/80 08/08/19 10:48 Pulse Ox 97 08/08/19 10:48 Eye Exam: Normal ENT: Positive: Normal ENT inspection Dental Exam: Normal Respiratory: Positive: No respiratory distress Musculoskeletal Exam: Normal Neurological Exam: Normal Psychological Exam: Normal Skin Exam: Normal Throat Pain/Nasal Course/Dx - Differential Dx/Diagnosis Differential Diagnosis/HQI/PQRI: Otitis Media, Sinusitis, URI Provider Diagnosis: Viral syndrome Discharge ED - Sign-Out/Discharge Documenting (check all that apply): Patient Departure All imaging exams completed and their final reports reviewed: No Studies - Discharge Plan Condition: Stable Disposition: HOME Patient Education Materials: Viral Syndrome (ED) Forms: COVID-19 Tested & Isolation Referrals: Adelaide Espinal NP [Primary Care Provider] - If Needed - Billing Disposition and Condition Condition: STABLE Disposition: Home
--- NOTE | 2019-08-11 07:44 | UC ---
- Progress Note Progress Note: Your Coronavirus test was negative You do not have to continue self quarantine but recommend that you continue to social distance If symptoms have persisted or worsened recommend follow up with your PCP or return to urgent care Course/Dx - Diagnoses Provider Diagnoses: Viral syndrome Discharge ED - Sign-Out/Discharge Documenting (check all that apply): Post-Discharge Follow Up All imaging exams completed and their final reports reviewed: No Studies - Discharge Plan Condition: Stable Disposition: HOME Patient Education Materials: Viral Syndrome (ED) Forms: COVID-19 Tested & Isolation Referrals: Adelaide Espinal NP [Primary Care Provider] - If Needed - Billing Disposition and Condition Condition: STABLE Disposition: Home
== END 2019-08-08 11:38 | disposition home or self-care (01) ==
LOC: UCCORT 09:15
DX: B34.9 Viral infection, unspecified (principal); Z20.828 Contact with and (suspected) exposure to other viral communicable diseases; Z88.0 Allergy status to penicillin; Z88.2 Allergy status to sulfonamides
CPT/HCPCS: 87651; 99211; G0463; U0002